=== PATIENT | female | born 1955 | race Caucasian/White ===

== ENCOUNTER 2018-04-14 11:03 | Outpatient (CLI) | payer OTHER | END 2018-04-14 11:04 | disposition home or self-care (01) | LOC: BICMAMMO 11:03 | PROVIDERS: ATTEND Family Medicine | DX: Z12.31 Encounter for screening mammogram for malignant neoplasm of breast (principal) | CPT/HCPCS: 77063; 77067 ==

== ENCOUNTER 2018-11-12 11:26 | Outpatient (CLI) | payer OTHER ==
--- NOTE | 2018-11-12 13:12 | RAD ---
RIGHT FOOT 3 VIEWS: Date: 11/12/18 PROVIDED CLINICAL HISTORY: Right foot pain. FINDINGS: There is a subtle area of cortical discontinuity involving the lateral aspect of the fifth metatarsal base that may reflect a nondisplaced fracture. No additional potential fracture is identified. Align ment appears anatomic. Joint spaces appear preserved. Soft tissues appear radiographically unremarkab le. IMPRESSION: Subtle cortical irregularity involving the fifth metatarsal base may reflect nondisplaced fracture. POS: Andrés
== END 2018-11-12 11:27 | disposition home or self-care (01) ==
LOC: SCSRAD 11:26
PROVIDERS: ATTEND Family Medicine
DX: M79.671 Pain in right foot (principal)

== ENCOUNTER 2018-11-26 09:06 | Outpatient (CLI) | payer OTHER ==
--- NOTE | 2018-11-26 09:32 | RAD ---
RIGHT FOOT 3 VIEWS: HISTORY: Abnormal previous exam of 11/12/2018. COMPARISON: 11/12/2018. FINDINGS: The subtle area of cortical discontinuity involving the lateral aspect of the base of the fifth metat arsal is again seen without callus formation. This is unlikely to represent an acute fracture. Clinical correlation is recommended. If symptoms continue, further vaginal MRI would be helpful.
== END 2018-11-26 09:07 | disposition home or self-care (01) ==
LOC: SCSRAD 09:06
PROVIDERS: ATTEND Family Medicine
DX: M79.671 Pain in right foot (principal)

== ENCOUNTER 2019-02-02 09:56 | Outpatient (CLI) | payer OTHER ==
--- NOTE | 2019-02-02 11:01 | RAD ---
RADIOGRAPH CHEST 2 VIEWS: DATE: 02/02/2019 HISTORY: 63-year-old female with cough FINDINGS: There is no airspace density, pulmonary edema, pleural effusion, pneumothorax, or cardiomegaly. IMPRESSION: No acute cardiopulmonary findings.
== END 2019-02-02 09:57 | disposition home or self-care (01) ==
LOC: SCSRAD 09:56
PROVIDERS: ATTEND Family Medicine
DX: R05 Cough (principal)
CPT/HCPCS: 71046

== ENCOUNTER 2019-08-15 11:22 | Observation (INO) | payer OTHER ==
[~2019-08-15 11:22] MED LIST: Dexamethasone 20 MG/5 ML VIAL ONE; Esmolol 100 MG/10 ML VIAL ONE; Glycopyrrolate 0.2 MG/ML 5 ML SYRINGE ONE; Ketorolac Tromethamine 30 MG/ML VIAL ONE; Lidocaine 1% PF 5 ML VIAL ONE; Ondansetron PF 4 MG/2 ML Vial ONE; PROPOFOL 200 MG/20 ML VIAL ONE; Rocuronium Bromide 10 MG/ML (10ML VIAL) ONE; Succinylcholine Chloride 20 MG/ML 10 ml SYRINGE FS ONE
[2019-08-15] MEDS ORDERED: Lidocaine 1% w/Epinephrine 1:100K 20 ML VIAL ONE (11:41)
[2019-08-15] MEDS ORDERED: Bupivacaine PF 0.5% 30 ML VIAL ONE (11:41)
[2019-08-15] MEDS ORDERED: Fentanyl 100 MCG/2 ML VIAL ONE ×2 (12:50→12:56)
[2019-08-15] MEDS ORDERED: SUGAMMADEX SODIUM 200 MG/2 ML VIAL ONE (13:52)
[2019-08-15] MEDS ORDERED: Promethazine HCl 25 MG/ML VIAL ONE (14:13)
[2019-08-15] MEDS ORDERED: Meperidine HCl/PF 25 MG/ML VIAL ONE (14:30)
[2019-08-15] MEDS ORDERED: hydrALAZINE 20 MG/ML VIAL SLOW IVP PRN (14:57)
[2019-08-15] MEDS ORDERED: Ondansetron PF 4 MG/2 ML Vial IVP PRN (14:57)
[2019-08-15] MEDS ORDERED: Promethazine HCl 25 MG/ML VIAL IM PRN (14:57)
[2019-08-15] MEDS ORDERED: Dextrose 50% Abboject 50 ML SYRINGE SLOW IVP PRN (14:57)
[2019-08-15] MEDS ORDERED: Dextrose 5% in Water 1,000 ML IV PRN (14:57)
[2019-08-15] MEDS ORDERED: Morphine 2 MG/ML SYRINGE SLOW IVP PRN (14:57)
[2019-08-15] MEDS ORDERED: Ketorolac Tromethamine 30 MG/ML VIAL IVP PRN (14:57)
[2019-08-15] MEDS ORDERED: traMADol HCl 50 MG TAB PO PRN (14:57)
[2019-08-15] MEDS ORDERED: Morphine 4 MG/ML VIAL SLOW IVP PRN (14:57)
[2019-08-15] MEDS ORDERED: HYDROcodone/Acetaminophen 7.5/325 mg Tablet PO PRN (14:57)
[2019-08-15] MEDS: D5 1/2 NS w/20 mEq KCL 1,000 ML IV SCH (15:20)
--- NOTE | 2019-08-15 16:24 | OP ---
DATE OF PROCEDURE: 08/15/2019 PREOPERATIVE DIAGNOSIS: Acute appendicitis. POSTOPERATIVE DIAGNOSIS: Acute appendicitis. PROCEDURE PERFORMED: Laparoscopic appendectomy. ANESTHESIA: General. ESTIMATED BLOOD LOSS: Minimal. COMPLICATIONS: None. SPECIMEN: Appendix. FINDINGS: Acute appendicitis. DESCRIPTION OF PROCEDURE: The patient was taken to the operating room and laid supine on the operating room table. After general anesthetic was obtained, a Edwards was placed. The abdomen was prepped and draped in a sterile fashion. Curved incision was made below the umbilicus. Cautery was used to dissect down to and score the fascia. Abdominal cavity was entered bluntly using a Ninfa clamp. PDS was placed on each side of the fascia. A 12 mm trocar was placed. High-flow pneumoperitoneum was obtained. Suprapubic 5 mm port and left lower quadrant 5 mm port were placed under direct visualization. The cecum was rolled over to reveal acute appendicitis. Laparoscopic stapler was fired across the base of the appendix. A vascular reload was fired across the mesoappendix. The appendix was placed in an EndoCatch bag and brought out through the 12 mm trocar site. All port sites were infiltrated using local anesthetic. All ports were removed. Right lower quadrant and pelvis were irrigated using sterile solution. There was no bleeding in the abdomen. No injury to any intra-abdominal structures. All ports were removed under direct camera visualization without bleeding. Pneumoperitoneum was let down. Maxon was used to close the fascial defect below the umbilicus. All incision sites were irrigated and closed using 4-0 Monocryl and Dermabond. The patient was sent to Recovery in stable condition. All sponge counts, needle counts, and lap counts were correct. Job ID: [id number]
[2019-08-15] MEDS: Piperacillin/Tazobactam 3.375 GM in Sodium Chloride 0.9% 100 ML IVPB SCH ×2 (17:43→23:44)
--- NOTE | 2019-08-15 18:57 | HP ---
CHIEF COMPLAINT: Right lower quadrant pain. HISTORY OF PRESENT ILLNESS: This is a 63-year-old female who woke this morning at 4:00 a.m. with crampy lower abdominal pain in the right lower quadrant, pain described as sharp 8/10, nothing made it better, associated with nausea, no vomiting. No prior history of chronic abdominal pain. No history of Crohn disease. Previous tubal ligation. Found to have CT showing acute appendicitis. PAST MEDICAL HISTORY: Includes hypertension, hypothyroidism, and hyperlipidemia. SURGICAL HISTORY: Tubal ligation and breast biopsy. MEDICATIONS: See list. ALLERGIES: NO KNOWN DRUG ALLERGIES. SOCIAL HISTORY: She smokes. No alcohol or other drugs. REVIEW OF SYSTEMS: Ten-system review of systems is otherwise negative unless described above. PHYSICAL EXAMINATION: HEENT: Sclerae are anicteric. Oropharynx clear. NECK: No lymphadenopathy. CHEST: Clear. HEART: Regular rate. ABDOMEN: Soft. Tender right lower quadrant with localized guarding. No rebound. No abdominal or inguinal hernias. EXTREMITIES: No ischemic or edema to extremities. LABORATORY DATA: White blood cell count is 13, hemoglobin 14, and platelet count is 192. Creatinine is 0.79. CT scan shows acute appendicitis. ASSESSMENT: Acute appendicitis. PLAN: Laparoscopic appendectomy. Risks, benefits, and alternatives discussed. She gives consent. We will do this today. Job ID: [id number]
[2019-08-15] MEDS: Famotidine 20 MG TAB PO SCH (20:31)
[2019-08-15] MEDS: Famotidine/PF 20 mg/2ml Vial SLOW IVP SCH (22:05)
[2019-08-16] MEDS: D5 1/2 NS w/20 mEq KCL 1,000 ML IV SCH (05:47)
[2019-08-16] MEDS: Piperacillin/Tazobactam 3.375 GM in Sodium Chloride 0.9% 100 ML IVPB SCH (05:48)
[2019-08-16 07:55] VITALS: TEMP 98.5
[2019-08-16] MEDS: Famotidine/PF 20 mg/2ml Vial SLOW IVP SCH (08:33)
[2019-08-16] MEDS: Famotidine 20 MG TAB PO SCH (08:33)
[2019-08-16 08:34] VITALS: BP 121/76
[2019-08-16] MEDS ORDERED: Lisinopril 10 MG TAB PO SCH (09:00)
--- NOTE | 2019-08-16 10:04 | DIS ---
DATE OF ADMISSION: 08/15/2019 DATE OF DISCHARGE: 08/16/2019 ADMIT DIAGNOSIS: Acute appendicitis. DISCHARGE DIAGNOSIS: Acute appendicitis. PROCEDURE PERFORMED: Laparoscopic appendectomy by Dr. Holly without complication. CONDITION ON DISCHARGE: Improved. STAFF: Elayne. HOSPITAL COURSE: On postop day 1, the patient is doing well. She is discharged to home. She will follow up with me in 2 weeks. She is going to take 1 week off work. Prescriptions for Kailash Craig sent over to her pharmacy. Job ID: [id number]
== END 2019-08-16 09:33 | disposition home or self-care (01) ==
LOC: SDC 11:22 → SURG B 15:36
PROVIDERS: ADMIT Surgery; ATTEND Surgery
PROC: 0DTJ4ZZ Resection of Appendix, Percutaneous Endoscopic Approach (ICD-10-PCS; principal; 2019-08-16)
DX: K35.80 Unspecified acute appendicitis (principal); I10 Essential (primary) hypertension; E03.9 Hypothyroidism, unspecified; E78.5 Hyperlipidemia, unspecified; F17.210 Nicotine dependence, cigarettes, uncomplicated; Z79.899 Other long term (current) drug therapy; Z88.8 Allergy status to other drugs, medicaments and biological substances
CPT/HCPCS: 88304; 96361; 96365; 96366; 96376; G0378; J1100; J1885; J2001; J2175; J2405; J2543; J2550; J2704; J3010; J3490; S0020

== ENCOUNTER 2019-09-03 14:40 | Outpatient (CLI) | payer OTHER ==
--- NOTE | 2019-09-03 16:26 | BD ---
Exam: DEXA Bone Density 09/03/19 HISTORY: Menopausal screening. Lumbar Spine: BMD (g/cm2) L1 0.838 T-Score: -1.4 L2 0.874 T-Score: -1.4 L3 1.067 T-Score: -0.2 L4 0.923 T-Score: -1.3 L1-L4 0.927 T-Score: -1.1 Evidence for osteopenia. Left Hip: Femoral Neck: 0.590 T-Score: -2.3 Total Femur: 0.808 T-Score: -1.1 Evidence for osteopenia. FRAX Score: Major osteoporotic fracture 12%. Hip fracture 3.5%. POS: [facility]PC
--- NOTE | 2019-09-09 12:40 | MMO ---
Bilateral MAMMO Bilat Screen [facility]. CLINICAL HISTORY: Patient is 63 years old and is seen for screening. The patient has no family history of breast cancer. The patient has no personal history of cancer. The patient has a history of right Excisional Biopsy in January, - benign. VIEWS: The views performed were: bilateral craniocaudal with tomosynthesis and bilateral mediolateral oblique with tomosynthesis. FILMS COMPARED: The present examination has been compared to prior imaging studies performed at [facility] on 08/11/2013, 11/07/2014 and 03/20/2016, and at [facility] on 04/14/2018. This study has been interpreted with the assistance of computer-aided detection. MAMMOGRAM FINDINGS: There are scattered fibroglandular densities. There are stable benign appearing calcifications seen in both breasts. Nodularity is stable. There are no suspicious masses, suspicious calcifications, or new areas of architectural distortion. IMPRESSION: THERE IS NO MAMMOGRAPHIC EVIDENCE OF MALIGNANCY. A ROUTINE FOLLOW-UP MAMMOGRAM IN 1 YEAR IS RECOMMENDED. THE RESULTS OF THIS EXAM WERE SENT TO THE PATIENT. ACR BI-RADS Category 2 - Benign finding MAMMOGRAPHY NOTE: 1. A negative mammogram report should not delay a biopsy if a dominant of clinically suspicious mass is present. 2. Approximately 10% to 15% of breast cancers are not detected by mammography. 3. Adenosis and dense breasts may obscure an underlying neoplasm. Reported by: JOVANY CORONA MD Electonically Signed: [id number]
== END 2019-09-03 14:41 | disposition home or self-care (01) ==
LOC: BICMAMMO 14:40
PROVIDERS: ATTEND Family Medicine
DX: Z12.31 Encounter for screening mammogram for malignant neoplasm of breast (principal); Z13.820 Encounter for screening for osteoporosis; E55.9 Vitamin D deficiency, unspecified; Z91.89 Other specified personal risk factors, not elsewhere classified; M85.89 Other specified disorders of bone density and structure, multiple sites
CPT/HCPCS: 77063; 77067; 77080

== ENCOUNTER 2021-09-05 11:46 | Outpatient (CLI) | payer MEDICARE | END 2021-09-05 11:47 | disposition home or self-care (01) | LOC: SCSMRI 11:46 | PROVIDERS: ATTEND Family Medicine | DX: R53.1 Weakness (principal); I63.532 Cerebral infarction due to unspecified occlusion or stenosis of left posterior cerebral artery; I63.512 Cerebral infarction due to unspecified occlusion or stenosis of left middle cerebral artery | CPT/HCPCS: 70553 ==

== ENCOUNTER 2021-09-05 16:05 | Outpatient (CLI) | payer MEDICARE | END 2021-09-05 16:06 | disposition home or self-care (01) | LOC: ULT 16:05 | PROVIDERS: ATTEND Family Medicine | DX: I63.512 Cerebral infarction due to unspecified occlusion or stenosis of left middle cerebral artery (principal); I65.22 Occlusion and stenosis of left carotid artery | CPT/HCPCS: 70553; 93880 ==

== ENCOUNTER 2024-06-08 11:01 | Outpatient (CLI) | payer MEDICARE | END 2024-06-08 11:02 | disposition home or self-care (01) | LOC: BICMAMMO 11:01 | PROVIDERS: ATTEND Family Medicine | DX: Z12.31 Encounter for screening mammogram for malignant neoplasm of breast (principal); Z80.3 Family history of malignant neoplasm of breast; Z91.89 Other specified personal risk factors, not elsewhere classified | CPT/HCPCS: 77063; 77067 ==

== ENCOUNTER 2024-08-04 09:36 | Outpatient (CLI) | payer MEDICARE | END 2024-08-04 09:37 | disposition home or self-care (01) | LOC: SCSMRI 09:36 | PROVIDERS: ATTEND Orthopaedic Surgery | DX: M75.101 Unspecified rotator cuff tear or rupture of right shoulder, not specified as traumatic (principal); M75.111 Incomplete rotator cuff tear or rupture of right shoulder, not specified as traumatic; M75.81 Other shoulder lesions, right shoulder; M75.51 Bursitis of right shoulder ==

== ENCOUNTER 2025-06-10 10:00 | Outpatient (CLI) | payer MEDICARE | END 2025-06-10 10:01 | disposition home or self-care (01) | LOC: BICMAMMO 10:00 | PROVIDERS: ATTEND Family Medicine | DX: Z12.31 Encounter for screening mammogram for malignant neoplasm of breast (principal); Z80.3 Family history of malignant neoplasm of breast; Z91.89 Other specified personal risk factors, not elsewhere classified | CPT/HCPCS: 77063; 77067 ==